=== PATIENT | male | born 1995 | race Caucasian/White ===

== ENCOUNTER 2021-05-08 18:12 | Emergency (ER) | payer OTHER ==
[~2021-05-08] VITALS: Ht 182.9 cm; Wt 104.5 kg
[2021-05-08] MEDS ORDERED: IV NORMAL SALINE 1000ML BAG 1,000 ML IV ONE (19:45)
--- NOTE | 2021-05-08 19:52 | PHYS DOC ---
Past Medical History Past Surgical History: Other Additional Past Surgical Histo: left ankle Smoking Status: Light Tobacco Smoker Alcohol Use: Occasionally General Adult EDM: Chief Complaint: MULTIPLE COMPLAINTS HPI: HPI: Patient is a 25 year old male who presents with palpitations. Patient states that symptoms have been going on for a few months but have recently become more frequent. Patient states that he works out daily and has been noticing it happ ening during his workouts. Patient drinks alcohol multiple times a week and consumes energy drinks a few times a week as well. Patient states he notices palpitations have been after drinking alcohol more than normal. "When it happens it feels like it kind of takes my breath away". "It usually lasts only a couple minutes". Denies chest pain, dizziness.No medical history. No daily meds. Unknown family history due to being adopted. Patient vapes, denies drug use. Review of Systems: Review of Systems: ROS At least 10 ROS systems have been reviewed and are negative except as documented in the HPI. General: Negative except as outlined in HPI above. Skin: Negative except as outlined in HPI above. HEENT: Negative except as outlined in HPI above. Neck: Negative except as outlined in HPI above. Respiratory: Negative except as outlined in HPI above.. Cardiovascular: Negative except as outlined in HPI above. Abdomen: Negative except as outlined in HPI above. : Negative except as outlined in HPI above. Back/MSK: Negative except as outlined in HPI above. Neuro: Negative except as outlined in HPI above. Psych: Negative except as outlined in HPI above. Heart Score: C/O Chest Pain: No Risk Factors: Risk Factors: DM, Current or recent (<one month) smoker, HTN, HLP, family history of CAD, obesity. Risk Scores: Score 0 - 3: 2.5% MACE over next 6 weeks - Discharge Home Score 4 - 6: 20.3% MACE over next 6 weeks - Admit for Clinical Observation Score 7 - 10: 72.7% MACE over next 6 weeks - Early Invasive Strategies Current Medications: Current Medications Medications (Trade) Dose Ordered Sig/[place] Start Time Stop Time Status Last Admin Dose Admin Sodium Chloride 1,000 ml @ 0 mls/hr 1X ONCE 05/08/21 19:45 05/08/21 19:46 Allergies: Allergies: Allergies Coded Allergies Type Severity Reaction Last Updated Verified No Known Drug Allergies 05/08/21 No Physical Exam: PE: Constitutional: Well developed, well nourished, no acute distress, non-toxic appearance. [] HENT: Normocephalic, atraumatic, bilateral external ears normal, oropharynx moist, no oral exudates, nose normal. [] Eyes: PERRLA, EOMI, conjunctiva normal, no discharge. [] Neck: Normal range of motion, no tenderness, supple, no stridor. [] Cardiovascular:Heart rate regular rhythm, no murmur [] Lungs & Thorax: Bilateral breath sounds clear to auscultation [] Abdomen: Bowel sounds normal, soft, no tenderness, no masses, no pulsatile masses. [] Skin: Warm, dry, no erythema, no rash. [] Back: No tenderness, no CVA tenderness. [] Extremities: No tenderness, no cyanosis, no clubbing, ROM intact, no edema. [] Neurologic: Alert and oriented X 3, normal motor function, normal sensory function, no focal deficits noted. [] Psychologic: Affect normal, judgement normal, mood normal. [] Current Patient Data: Vital Signs: Vital Signs Date Time Temp Pulse Resp B/P (MAP) Pulse Ox O2 Delivery O2 Flow Rate FiO2 05/08/21 19:30 54 19 121/62 (81) 100 Room Air 05/08/21 19:10 98.3 98.3 EKG: EKG: [] Radiology/Procedures: Radiology/Procedures: []Exam: Chest one view INDICATION: Palpitations TECHNIQUE: Frontal view of the chest Comparisons: None FINDINGS: The cardiomediastinal silhouette and pulmonary vessels are within normal limits. The lung and pleural spaces are clear. IMPRESSION: No acute cardiopulmonary process. Electronically signed by: Sinai Saavedra MD (05/08/2021 9:10 PM) [facility] Med Decision Making: Course & Med Decision Making Pertinent Labs and Imaging studies reviewed. (See chart for details) [] 25-year-old male presents with heart palpitations. All labs unremarkable. Chest xray is unremarkable. Patient is denying all symptoms at this time. Advised patient to call his PCP and make an appointment for cardiology. Discussed results with patient who agrees with discharge plan. Educated patient on increasing fluids to avoid dehydration, cutting back on alcohol and energy drinks. Suggested keeping a log of when his symptoms occur to provide to 3rd grade reading teacher. Patient verbalizes understanding of discharge instructions. Patient is hemodynamically stable upon disposition. Dragon Disclaimer: Dragon Disclaimer: This electronic medical record was generated, in whole or in part, using a voice recognition dictation system. Departure Departure Impression: Primary Impression: Heart palpitations Disposition: HOME / SELF CARE / HOMELESS Condition: STABLE Referrals: UNKNOWN PCP NAME (PCP) Patient Instructions: Palpitations, [id number] Additional Instructions: You were seen in the emergency room for heart palpitations. All your labs were unremarkable. You need to follow-up with your PCP tomorrow to make an appointment so you can get a referral for a 3rd grade reading teacher appointment. Make sure you are drinking plenty of water. Make a log of when your symptoms occur. Try and cut back on energy drinks and alcohol. Return to the emergency room if you have worsening symptoms or concerns. EMERGENCY DEPARTMENT GENERAL DISCHARGE INSTRUCTIONS Thank you for coming to [facility] Emergency Department (ED) today and trusting us with you care. We trust that you had a positive experience in our Emergency Department. If you wish to speak to the department management, you may call the Director at [phone]. YOUR FOLLOW UP INSTRUCTIONS ARE FOLLOWS: 1. Do you have a private Doctor? If you do not have a private doctor, please ask for a resource list of physicians or clinics that may be able to assist you with follow up care. 2. The Emergency Physicain has interpreted your x-rays. The X-Ray specialist will also review them. If there is a change in the findings, you will be notified in 48 hours when at all possible. 3. A lab test or culture has been done, your results will be reviewed and you will be notified if you need a change in treatment. ADDITIONAL INSTRUCTIONS AND INFORMATION: 1. Your care today has been supervised by a physician who is specially trained in emergency care. Many problems require more than one evaluation for a complete diagnosis and treatment. We recommend that you schedule your follow up appointment as recommended to ensure complete treatment of you illness or injury. If you are unable to obtain follow up care and continue to have a problem, or if your condition worsens, we recommend that you return to the ED. 2. We are not able to safely determine your condition over the phone nor are we able to give sound medical advice over the phone. For these safety reasons, if you call for medical advice we will ask you to come to the ED for further evaluation. 3. If you have any questions regarding these discharge instructions please call the ED at [phone]. SAFETY INFORMATION: In the interest of safety, wellness, and injury prevention; we encourage you to wear your sealbelt, if you smoke; quite smoking, and we encourage family to use a protective helmet for bicycling and other sporting events that present an increased risk for head injury. IF YOUR SYMPTOMS WORSEN OR NEW SYMPTOMS DEVELOP, OR YOU HAVE CONCERNS ABOUT YOUR CONDITION; OR IF YOUR CONDITION WORSENS WHILE YOU ARE WAITING FOR YOUR FOLLOW UP APPOINTMENT; EITHER CONTACT YOUR PRIMARY CARE DOCTOR, THE PHYSICIAN WHOSE NAME AND NUMBER YOU WERE GIVEN, OR RETURN TO THE ED IMMEDIATELY. TERRY DAY APRN May 08, 2021 19:52
[2021-05-08 19:57] LABS: BASO % 0 % (0-3); EOS # 0.2 x10^3/uL (0.0-0.7); EOS % 3 % (0-3); HEMATOCRIT 42.5 % (39.0-53.0); HEMOGLOBIN 14.7 g/dL (13.0-17.5); LYMPH # 2.1 x10^3/uL (1.0-4.8); LYMPH % 31 % (24-48); MEAN CORPUSCULAR HEMOGLOBIN 31 pg (25-35); MEAN CORPUSCULAR HGB CONC 35 g/dL (31-37); MEAN CORPUSCULAR VOLUME 91 fL (79-100); MONO # 0.5 x10^3/uL (0.0-1.1); MONO % 7 % (0-9); NEUT # 4.1 x10^3/uL (1.8-7.7); NEUT % 59 % (31-73); PLATELET COUNT 303 x10^3/uL (140-400); RED BLOOD COUNT 4.68 x10^6/uL (4.30-5.70); RED CELL DISTRIBUTION WIDTH 13.1 % (11.5-14.5)
[2021-05-08 20:13] LABS: CALCIUM 9.2 mg/dL (8.5-10.1); CREATININE 1.3 mg/dL (0.7-1.3); GFR 67.3; POTASSIUM 3.7 mmol/L (3.5-5.1)
--- NOTE | 2021-05-08 21:12 | RAD ---
Exam: Chest one view INDICATION: Palpitations TECHNIQUE: Frontal view of the chest Comparisons: None FINDINGS: The cardiomediastinal silhouette and pulmonary vessels are within normal limits. The lung and pleural spaces are clear. IMPRESSION: No acute cardiopulmonary process. Electronically signed by: Sinai Saavedra MD (05/08/2021 9:10 PM) JUDD
[2021-05-08 22:07] VITALS: BP 127/58
--- NOTE | 2021-05-08 23:32 | EKG ---
[facility] [address] [place] [address] Test Date: 2021-05-08 Test Time: 19:12:01 Pat Name: AMALIA SALDAÑA Department: Room: Gender: M [employer] Teacher: : 1995 Requested By: TERRY DAY Order Number: [id number] Reading MD: Mikel Hinson MD Measurements Intervals Duncan Rate: 63 P: 49 RI: 172 QRS: 57 QRSD: 104 T: 33 QT: 380 QTc: 392 Interpretive Statements SINUS RHYTHM Electronically Signed On 05-13-2021 14:09:26 CELLULAR EQUIPMENT REPAIRER by Mikel Hinson MD
== END 2021-05-08 22:17 | disposition home or self-care (01) ==
LOC: ER 18:12
DX: R00.2 Palpitations (principal); Z72.0 Tobacco use
CPT/HCPCS: 36415; 71045; 80048; 85025; 93005; 99285; J7030